=== PATIENT | male | born 1985 | race Caucasian/White ===

== ENCOUNTER 2022-11-10 19:33 | Emergency (ER) | payer SELFPAY ==
[~2022-11-10] VITALS: Ht 170.2 cm; Wt 82.0 kg
[2022-11-10 19:44] VITALS: TEMP 98.9; O2SAT 99
[2022-11-10 20:19] LABS: BASOPHILS % 0.1 % (0.0-2.0); EOSINOPHILS % 0.7 % (0.0-5.0); HEMATOCRIT. 44.8 % (42.0-52.0); HEMOGLOBIN. 15.7 g/dL (14.0-18.0); LYMPHOCYTES % 13.2 % (20.0-50.0); MEAN CORPUSCULAR VOLUME 85.8 fL (80.0-94.0); MEAN PLATELET VOLUME 8.1 fl (7.4-10.4); MONOCYTES % 6.3 % (2.0-8.0); NEUTROPHILS % 79.7 % (40.0-76.0); PLATELET 269 x1000/uL (130-400); RED BLOOD CELL COUNT 5.22 mill/uL (4.7-6.1); RED CELL DISTRIBUTION WIDTH 13.5 % (11.6-14.6); WHITE BLOOD COUNT 9.3 x1000/uL (4.5-11.0)
[2022-11-10 20:31] LABS: TROPONIN I HIGH SENSITIVITY 15 ng/L (<78)
[2022-11-10] MEDS ORDERED: CLONIDINE 0.1MG TABLET PO NR (22:30)
[2022-11-10 22:42] VITALS: BP 128/72; PULSE 85; RESP 16
== END 2022-11-10 22:43 | disposition home or self-care (01) ==
LOC: ER 19:33
DX: R10.11 Right upper quadrant pain (principal); R07.89 Other chest pain
CPT/HCPCS: 36415; 71045; 76705; 84484; 85025; 99284